=== PATIENT | female | born 1975 | race Caucasian/White ===

== ENCOUNTER 2021-06-14 16:06 | Outpatient (CLI) | payer BC, SELFPAY ==
--- NOTE | 2021-06-14 | ECG_ITS ---
Measurements Intervals [place] Rate: 55 P: 37 NE: 152 QRS: 2 QRSD: 108 T: 3 QT: 435 QTc: 417 Interpretive Statements SINUS BRADYCARDIA WITH SINUS ARRHYTHMIA POSSIBLE RIGHT VENTRICULAR CONDUCTION DELAY [RSR (QR) IN V1/V2] POSSIBLE LEFT VENTRICULAR HYPERTROPHY [VOLTAGE CRITERIA PLUS LAE OR QRS WIDENING] NO PREVIOUS ECG AVAILABLE FOR COMPARISON Electronically Signed On 06-15-2021 11:51:06 CDT by Uma Hutchins M.D.
== END 2021-06-14 16:07 | disposition home or self-care (01) ==
LOC: ANHLAB 16:09 → ANHCARD 16:14
PROVIDERS: Visit Provider Obstetrics & Gynecology
DX: I49.8 Other specified cardiac arrhythmias (principal); E66.9 Obesity, unspecified
CPT/HCPCS: 93005

== ENCOUNTER 2023-08-24 09:23 | Outpatient (CLI) | payer BC, SELFPAY ==
--- NOTE | ~2023-08-24 | CT_ITS ---
EXAMINATION: CT abdomen pelvis w con DATE: 08/24/2023 09:57 INDICATION: Inguinal hernia TECHNIQUE: Computed tomography (CT) of the abdomen and pelvis was performed with 100 CC Omnipaque 350 intravenous contrast. Automated exposure control and iterative reconstruction technique were employe d. Exam dose: 1409.02 mGy-cm total exam DLP. COMPARISON: None. FINDINGS: The lung bases are clear. Normal heart size. No pericardial or pleural effusion. Very small sliding hiatal hernia. 2 cm posterior right hepatic hypoattenuating mass. The liver is otherwise unremarkable. The gallbladder is present. No gallbladder wall thickening or pericholecystic fluid or fat stranding. No bile duct or pancreatic duct dilatation. No pancreatic mass lesion or calcification. Normal splenic size. Normal morphology of the adrenal glands. There are couple of small right renal cysts, the larger 6 mm. Approximately 3 mm left renal cyst. No urinary tract calculus or hydroureteronephrosis. There is an IUD within the uterus. Approximately 1.7 cm right ovarian probable cyst. The uterus, adne xal areas and urinary bladder are otherwise unremarkable. Normal caliber of the abdominal aorta. No intraperitoneal or retroperitoneal or pelvic mass lesion or adenopathy or ascites. No bowel obstruction, bowel wall thickening, pneumatosis or intraperitoneal free air is detected. Small fat-containing umbilical hernia. Small fat-containing inguinal hernias. Moderately severe degenerative disc disease at L4-5. No suspicious osteolytic or osteoblastic lesions are noted. IMPRESSION: 2 cm posterior right hepatic nonspecific hypoattenuating lesion; recommend comparison wi th any prior available CT examinations. If none are available, consider MRI liver for further evaluat ion. Several small renal cysts IUD within uterus Probable 1.7 cm right ovarian cyst Very small sliding hiatal hernia Small fat-containing umbilical and bilateral inguinal hernias Reviewed, dictated and finalized at [facility]. Reviewed, dictated and finalized at location B. IMPRESSION: 2 cm posterior right hepatic nonspecific hypoattenuating lesion; r ecommend comparison with any prior available CT examinations. If none are avail able, consider MRI liver for further evaluation. Several small renal cysts IUD within uterus Probable 1.7 cm right ovarian cyst Very small sliding hiatal hernia Small fat-containing umbilical and bilateral inguinal hernias
== END 2023-08-24 09:24 | disposition home or self-care (01) ==
DX: N28.1 Cyst of kidney, acquired (principal); Z97.5 Presence of (intrauterine) contraceptive device; K44.9 Diaphragmatic hernia without obstruction or gangrene; K40.20 Bilateral inguinal hernia, without obstruction or gangrene, not specified as recurrent; K42.9 Umbilical hernia without obstruction or gangrene
CPT/HCPCS: 74177; Q9967

== ENCOUNTER 2023-09-18 10:46 | Outpatient (CLI) | payer BC, SELFPAY ==
--- NOTE | ~2023-09-18 | MR_ITS ---
EXAMINATION: MR abdomen wo/w con DATE: 09/18/2023 11:54 INDICATION: Liver mass. TECHNIQUE: Magnetic resonance imaging (MRI) of the abdomen was performed without and with 19 mL Multi Mary Alice intravenous contrast. COMPARISON: CT abdomen and pelvis 08/24/2023 FINDINGS: There is an 18 mm cystic mass in right hepatic lobe with irregular peripheral nodules of enhancement. There are gallstones in the gallbladder, which is normal in size. The spleen, pancreas, and adrenal glands are normal. There are cysts in the kidneys measuring up to 5 mm on the right. There are no dil ated loops of bowel. There are no pathologically enlarged lymph nodes. There is no free intraperitone al fluid. IMPRESSION: 1. 18 mm cystic mass in right hepatic lobe, which may be a benign cyst, abscess, or less likely a nec rotic neoplasm. Consider ultrasound-guided core needle biopsy. Reviewed, dictated and finalized at location E. IMPRESSION: 1. 18 mm cystic mass in right hepatic lobe, which may be a benign cyst, abscess , or less likely a necrotic neoplasm. Consider ultrasound-guided core needle bi opsy.
== END 2023-09-18 10:47 ==
DX: K76.9 Liver disease, unspecified (principal)
CPT/HCPCS: 74183; A9577

== ENCOUNTER 2024-02-10 08:31 | Outpatient (CLI) | payer BC, SELFPAY ==
[2024-02-10 09:01] LABS: Alanine Aminotransferase 11 U/L (6-35); Albumin Level 4.3 g/dL (3.5-5.1); Alkaline Phosphatase 54 U/L (38-126); Amylase 60 U/L (30-110); Aspartate Amino Transferase 15 U/L (14-36); Bilirubin,Total 0.6 mg/dL (0.2-1.3); Lipase 100 U/L (23-300)
== END 2024-02-10 08:32 | disposition home or self-care (01) ==
PROVIDERS: Referring Provider Anesthesiology; Visit Provider Surgery
DX: K82.9 Disease of gallbladder, unspecified (principal); K40.90 Unilateral inguinal hernia, without obstruction or gangrene, not specified as recurrent
CPT/HCPCS: 36415; 80076; 82150; 83690; 86850; 86900; 86901

== ENCOUNTER 2024-02-14 01:03 | Day surgery (SDC) | payer BC, SELFPAY ==
[2024-02-06 12:57] VITALS: BMI 36.1
--- NOTE | 2024-02-06 12:58 | PC.NURSE ---
Report to the Outpatient Waiting Room, entrance under the green pavilion located off [facility], at time _0600_ on date _[id number]_. Planned Procedure Time: _0730_.? Time changes happen often and if your time is changed the preop area will call you the afternoon before. - You and your visitor will be asked to self-screen and do not enter if you have any COVID symptoms. Please call surgeon if you need to reschedule. - A mask is optional within the hospital at this time. Patients may have clear liquids (water, carbonated beverages, clear teas, apple juice) until 3 hours prior to surgery with a maximum of 20 ounces. - No food from midnight until time of surgery and no smoking Take only the following medications with a SIP of water on the morning of surgery: __None__ DO NOT STOP ANY OF YOUR OTHER PRESCRIPTION MEDICATIONS PRIOR TO SURGERY EXCEPT THE FOLLOWING Medications to discontinue per physician __None____ Please no make-up, nail yi, hairspray, perfume, deodorant, or body powder the day of surgery.? No jewelry (including any body piercings) or valuables the day of surgery, leave them at home.? Please take a shower or bath the night before, or the morning of, surgery with an antibacterial soap.? Wear comfortable, loose fitting clothing.? - Jewelry must be removed prior to entering the operating room.? Rings and piercings that are not removed may be cut off. - The hospital will not accept responsibility for valuables.? - Please leave all valuables, including medications, at home the day of surgery. If you are going home after surgery, a licensed reach lift truck driver must drive you home.? - NO public transportation without another adult if you receive anesthesia. - We recommend that an adult stay with you for 24 hours following discharge. - We also recommend that you do not drive, make important decision, drink alcoholic beverages, or take any drugs that were not prescribed by your health care provider for at least 24 hours after your discharge time. Follow any additional instructions given to you from your surgeon. Telephone instructions given to __Jacinda__and asked if any additional questions and then verbalized understanding. Patient advised to call surgeon office or pre surgery nurse liaison [phone] if any additional questions.
[2024-02-14] VITALS (12 sets, daily range): BP systolic 96–127; BP diastolic 64–87; PULSE 52–80; RESP 12–20; TEMP 36.2; O2SAT 96–100
[2024-02-14] MEDS: ACETAMINOPHEN 500 MG TABLET 1000 MG PO (06:36)
[2024-02-14] MEDS: SCOPOLAMINE 1 MG PATCH 1 PATCH TRANSDERM (06:36)
[2024-02-14] MEDS: LACTATED RINGERS 1,000 ML 30 ML IV CONT ×3 (07:00→10:01)
[2024-02-14] MEDS: INDOCYANINE GREEN 25 MG VIAL WITH DILUENT 3.75 MG IV PUSH (07:02)
[2024-02-14] MEDS: KETOROLAC 15 MG/ML VIAL (*BKC) IV PUSH (07:03)
--- NOTE | 2024-02-14 07:08 | PM.IMHP ---
H&P: HPI History of Present Illness Date/Time: 02/14/24 07:08 Chief Complaint: Cholelithiasis, left inguinal hernia Narrative: 48 yo woman presents for cholecystectomy and left inguinal hernia repair. She was seen previously for the hernia and imaging had shown gallstones as well. At that time she was not having gallbladder symptoms, but recently she began developing RUQ pain after eating. She reports no changes with the hernia since last being seen. Review of Systems Review of Systems: All systems reviewed & are unremarkable except as noted in HPI and below Constitutional: Constitutional: Denies chills, Denies fever(s), Denies headache(s) and Denies weight loss Eyes: Eyes: Denies change in vision ENT: Denies dizziness, Denies headache(s), Denies neck mass and Denies throat swelling Cardiovascular: Cardiovascular: Denies chest pain, Denies lightheadedness and Denies dyspnea Respiratory: Respiratory: Denies cough, Denies dyspnea and Denies wheezing Gastrointestinal: Gastrointestinal: Denies abdominal pain, Denies change in bowel habits, Denies nausea and Denies vomiting Genitourinary: Genitourinary: Denies hematuria and Denies dysuria Musculoskeletal: Musculoskeletal: Reports as per HPI Integumentary/Breasts: Skin/Breast: Reports as per HPI Neurologic: Denies dizziness and Denies headache(s) Allergic/Immunologic: Allergic/Immunologic: Denies throat swelling and Denies wheezing FOR[facility]LY [facility] Past Medical History Medical History (Updated 02/14/24 @ 07:10 by Qasim Spear DO) Allergies Anxiety GERD (gastroesophageal reflux disease) Surgical History Surgical History (Updated 09/25/23 @ 14:00 by Lexy Pastor CMA) History of tonsillectomy Family History Family History (Updated 09/25/23 @ 14:01 by Lexy Pastor CMA) Other Breast cancer Heart disease Lung cancer Social History Social History (Updated 09/25/23 @ 14:02 by Lexy Pastor CMA) Smoking status: Never smoker Alcohol intake: current Other substance usage details: cbc with low dose thc to sleep occasionally Do You Feel Safe in your Home?: Yes Lack of Transportation: No Lack of Food: Never True Current Housing: I Have Housing Concerned About Future Housing: No Difficulty Paying Gas/Electric Bills: No Difficulty Paying for Meds: No Currently Unemployed: No Education: High School Diploma/GED Difficulty w/ Childcare or Family Care: No Living arrangements: with family Occupation/Education: occupation Additional occupation/education comments: [employer] Spiritual care concerns: No Meds Home Medications and Allergies Home Medications Medication Instructions Recorded Confirmed Type alprazolam 0.25 mg tablet (Xanax) 0.25 mg PO QHS PRN Insomnia 09/25/23 02/06/24 History fluticasone propionate 50 1 spray intranasal DAILY 09/25/23 02/06/24 History mcg/actuation nasal spray,suspension (Allergy Relief (fluticasone)) levocetirizine 5 mg tablet (Xyzal) 5 mg PO DAILY 09/25/23 02/06/24 History levonorgestrel 21 mcg/24 hr (up to 1 device intrauterine ONCE 09/25/23 02/06/24 History 8 years) 52 mg intrauterine device (Mirena) omeprazole 20 mg capsule,delayed 20 mg PO DAILY PRN Acid Reflux 09/25/23 02/06/24 History release phentermine 15 mg capsule 15 mg PO DAILY 09/25/23 02/06/24 History topiramate 25 mg capsule,extended 25 mg PO DAILY 09/25/23 02/06/24 History release 24 hr valacyclovir 1 gram tablet 1,000 mg PO DAILY PRN Cold Sores 09/25/23 02/06/24 History Allergies Allergy/AdvReac Type Severity Reaction Status Date / Time amoxicillin Allergy Intermediate Rash Verified 02/14/24 06:20 Exam Const: General: no acute distress and alert Orientation/consciousness: patient oriented x3 HENMT: Head: normocephalic and atraumatic Ears: hearing grossly normal bilaterally Face/Nose/Sinus: Normal nares present Mouth: Yes Normal oral and palatal mucosa present Eyes: Periorbital: periorbital findings normal Sclera: sclerae normal EOM: EOMs intact bilaterally Neck: Neck: normal visual inspection, no lymphadenopathy and trachea midline Chest: Chest palpation & inspection: normal inspection of the chest Resp: Effort & Inspection: normal respiratory effort Auscultation: clear to auscultation bilaterally Cardio: Jugular venous distension: no JVD Rate: regular rate Rhythm: regular rhythm Heart sounds: S1 normal heart sound present and S2 normal heart sound present Peripheral pulses: Peripheral pulses 2+ throughout GI: Inspection: normal to inspection GI Palp: Yes Soft to palpation, No Tenderness to palpation present (GI), No Guarding due to palpation present (GI) and No Rebound tenderness present Percussion: Yes normal to percussion Auscultation: normal bowel sounds Other: left inguinal hernia : General: Yes no CVA tenderness Back/Spine/Pelvis: Back: no CVA tenderness Neuro: General: patient oriented x3, no focal motor deficits and CN's II-XI intact bilaterally Cognition (Neuro): normal cognition Speech: normal speech Motor exam (neuro): 5/5 motor strength present throughout Extrem: General: capillary refill normal and no clubbing, cyanosis or edema Assessment and Plan Assessment and plan (1) Left inguinal hernia: Code(s): K40.90 - Unilateral inguinal hernia, without obstruction or gangrene, not specified as recurrent Status: Acute Assessment and Plan: I have recommended laparoscopic left inguinal hernia repair with mesh, da guzman assisted and laparoscopic cholecystectomy, da guzman assisted. I have discussed the procedure, risks, benefits, and alternatives with the patient. All questions answered. No changes since last seen in office. (2) Symptomatic cholelithiasis: Code(s): K80.20 - Calculus of gallbladder without cholecystitis without obstruction Status: Acute
[2024-02-14 07:10] LABS: BEDSIDEPREGUCG Negative (Negative)
--- NOTE | 2024-02-14 07:10 | WPDANESEPPF ---
Anes - Initial Pre Proc Eval Procedure: Operation Date: 02/14/24 07:30 Proposed Procedures p Laparoscopic Cholecystectomy, Marzena Deleon - Qasim Spear DO s Laparoscopic Left Inguinal Hernia Repair with Mesh, Marzena Assisted - Qasim Spear DO Date/Time: 02/14/24 07:10 Surgeon: Qasim Spear DO Pre Op Diagnosis: Symptomatic Cholelithasis, Lt Ing Hernia Patient Data Age: 48 Gender: F Height: 1.57 m Weight: 88 kg Last Vital Signs Temp 97.2 F L 02/14/24 07:06 Pulse 75 02/14/24 07:06 Resp 16 02/14/24 07:06 BP 123/72 02/14/24 07:06 Pulse Ox 100 02/14/24 07:06 O2 Del Method Room Air 02/14/24 07:06 Allergies Allergy/AdvReac Type Severity Reaction Status Date / Time amoxicillin Allergy Intermediate Rash Verified 02/14/24 06:20 Home Medications Medication Instructions Recorded Confirmed Type alprazolam 0.25 mg tablet (Xanax) 0.25 mg PO QHS PRN Insomnia 09/25/23 02/06/24 History fluticasone propionate 50 1 spray intranasal DAILY 09/25/23 02/06/24 History mcg/actuation nasal spray,suspension (Allergy Relief (fluticasone)) levocetirizine 5 mg tablet (Xyzal) 5 mg PO DAILY 09/25/23 02/06/24 History levonorgestrel 21 mcg/24 hr (up to 1 device intrauterine ONCE 09/25/23 02/06/24 History 8 years) 52 mg intrauterine device (Mirena) omeprazole 20 mg capsule,delayed 20 mg PO DAILY PRN Acid Reflux 09/25/23 02/06/24 History release phentermine 15 mg capsule 15 mg PO DAILY 09/25/23 02/06/24 History topiramate 25 mg capsule,extended 25 mg PO DAILY 09/25/23 02/06/24 History release 24 hr valacyclovir 1 gram tablet 1,000 mg PO DAILY PRN Cold Sores 09/25/23 02/06/24 History Laboratory Tests 02/14/24 07:06 POC Urine HCG, Qual Pending Patient hx anesthesia problems: none Family hx anesthesia problems: none Results Review: All pre-operative results and documents have been reviewed as part of the pre-operative evaluation. [facility] Past Medical History Medical History Allergies Anxiety GERD (gastroesophageal reflux disease) Surgical History Surgical History History of tonsillectomy Family History Family History Other Breast cancer Heart disease Lung cancer Social History Social History Smoking status: Never smoker Alcohol intake: current Other substance usage details: cbc with low dose thc to sleep occasionally Do You Feel Safe in your Home?: Yes Lack of Transportation: No Lack of Food: Never True Current Housing: I Have Housing Concerned About Future Housing: No Difficulty Paying Gas/Electric Bills: No Difficulty Paying for Meds: No Currently Unemployed: No Education: High School Diploma/GED Difficulty w/ Childcare or Family Care: No Living arrangements: with family Occupation/Education: occupation Additional occupation/education comments: Manager Document Spiritual care concerns: No Anes - Eval Final PreProcedure Day of Procedure 02/14/24 07:10 Patient weight: obese Heart: regular rate and rhythm Lungs: clear to auscultation Airway: Mallampati scale class II Neurological: alert and oriented Last oral intake: >/= 8 hours ASA classification: II Emergent: no Anesthetic plan: proceed Anesthesia type and monitoring: general ETT and standard monitoring Results Review: All pre-operative results and documents have been reviewed as part of the pre-operative evaluation. BMI 35, anxiety meds. Pt reports that she walks 3 miles 3 x weekly, no cp or sob. R great toe w swelling/bruising due to dropping heavy cup on it yesterday. Informed Consent: The patient's anesthetic plan and its attendant risks and benefits were discussed with the patient/family/POA. Questions were solicited and answers provided to the satisfaction of the patient/family/POA.
--- NOTE | 2024-02-14 07:11 | WPDHPUPDATE1 ---
History and Physical Update Update Date/Time: 02/14/24 07:11 History and Physical has been reviewed, including an updated exam of the patient. There are NO changes in the patient's condition. Risks, benefits, and alternatives have been discussed and questions answered. Patient agrees to proceed with procedure.
[2024-02-14] MEDS: ceFAZolin 2 GM/D5W 50 ML 2 GM/50 ML BAG IVPB (07:30)
[2024-02-14] MEDS: BUPIVACAINE/EPINEPHRINE 0.5% 50 ML VIAL 30 ML INFILTRATE (08:02)
--- NOTE | 2024-02-14 09:03 | P.OP_ITS ---
Procedure Note - Detailed Date of Procedure 02/14/24 Pre-op Diagnosis Symptomatic Cholelithiasis, Left Inguinal Hernia Post-op Diagnosis Same (Indirect left inguinal hernia) Procedure Performed 1. Laparoscopic cholecystectomy with cholangiography, da Shawn assisted 2. Interpretation of cholangiography 3. Laparoscopic left inguinal hernia repair with mesh, da Shawn assisted Surgeon Qasim Spear, DO Anesthesia General and Local (0.5% bupivacaine) Indications This is a 48-year-old woman who presented with intermittent left groin pain and right upper quadrant pain for the past 6 months. Patient had workup which included a CT and MRI. The CT showed evidence of possible bilateral inguinal hernias and a small umbilical hernia. She was only complaining pain on left groin region and on exam could not identify a hernia in the right groin or umbilical region. She did have a small reducible left inguinal hernia on exam. She then was also complaining of some right upper quadrant pain intermittently especially if she were to eat heavier foods. Her MRI did show evidence of cholelithiasis. I discussed treatment options patient and decision was made to proceed with robotic assisted laparoscopic cholecystectomy and left inguinal hernia repair with mesh. Findings Upon inspecting the abdomen laparoscopically, the patient was found to have an indirect left inguinal hernia but no evidence of right inguinal hernia. I did not identify any evidence of an umbilical hernia as well. The left inguinal hernia was repaired robotically with a large left 3DMax mid mesh. After completing this portion of the procedure I then moved my attention to the gallb ladder. The patient's gallbladder was slightly dilated and the liver appeared to have steatosis and the left lobe of the liver was somewhat enlarged and overlapping onto the right side of the abdomen. Indocyanine green had been given intravenously preoperatively. This then allowed me to identify the biliary anatomy including the neck of the gallbladder, cystic duct, and common bile duct. With visualization with the near infrared fluorescence imaging, was able to safely identify the critical anatomy and view the critical view of safety to prevent any potential bile duct injuries. The gallbladder was removed and sent to the lab for pathology. Description of Procedure Procedure as well as risks, benefits, and alternatives were discussed with the patient. Written consent was obtained and placed in chart prior to procedure. 1.5 mL of indocyanine green was given intravenously in preop. Patient was brought back to surgical suite. She was placed supine on operating table. Time-out was done to confirm patient and procedure. She was then intubated by the anesthesia department. Her abdomen was then prepped and draped in sterile fashion using chlorhexidine prep. 0.5% bupivacaine was infiltrated locally at the site of each port placement. An 8 mm incision was made in the left upper quadrant and a 5 mm Optiview trocar was then advanced through the abdominal layers under direct visualization. Once inside the abdominal cavity, carbon dioxide insufflation was used to create a pneumoperitoneum. The camera was inserted and the abdomen was inspected. No mediated abnormalities were noted. Two 8 mm incisions were made in the right lateral abdomen and 2 8 mm trocars were inserted under direct visualization. An 8 mm incision was made in the supraumbilical region and an 8 mm trocar was inserted under direct visualization. The 5 mm Optiview trocar was then removed and another 8 mm trocar was inserted in its place. Patient was then placed in slight Trendelenburg position. The robotic arms were then brought up to the patient's bedside and secured to each port. The camera and instruments were inserted. I then moved over to the robotic consult to take control of the camera and instruments. Inspected the lower abdomen and identified an indirect left inguinal hernia. There was no evidence of a right inguinal hernia. A began scoring the peritoneum about 6 cm cephalad to the hernia the left groin region using scissors with electrocautery. The preperitoneal plane was developed extending caudad towards the hernia defect. The hernia sac was reduced and dissected far enough posteriorly to allow for mesh placement. I also dissected far enough medially to identify the pubic arch in Basil's ligament and laterall y wide enough for the mesh placement. The hernia sac was dissected off of the round ligament, but I did not need to transect the round ligament. Once a wide enough preperitoneal pocket was created, I then placed a large left 3DMax mid mesh within the preperitoneal pocket and carefully laid this out overlying the entire left myopectineal orifice. The mesh was then secured in place at Basil's ligament using a 3-0 Vicryl simple interrupted suture. The mesh was then also secured at the superior medial and lateral edge using 3-0 Vicryl simple interrupted sutures. The peritoneum was then closed over the mesh using a 3 0 V lock running absorbable suture. The repair was inspected and appeared secure. The robotic instruments were then removed and the robotic arms were disengaged from the ports. The robotic arms were then repositioned and the patient was placed in 12? reverse Trendelenburg position and 6? to the left. The robotic arms were then removed the secured to the ports and the camera and instruments were then reinserted. The gallbladder was grasped at the fundus and retracted cephalad. The infundibulum of the gallbladder was then grasped and retracted laterally. Hook electrocautery was then used to carefully dissect around the neck of the gallbladder. The cystic duct was identified and a window was created around it using hook electrocautery. The cystic artery was also identified and a window was created behind it using hook electrocautery. Critical view of safety was identified visualizing the cystic duct running directly into the neck of the gallbladder and the cystic artery running directly into the wall the gallbladder. The camera view was switched to firefly mode and the indocyanine green within the gallbladder and cystic duct was clearly visualized. No other structures were noted running into this region and there did not appear to be any obstruction of the cystic duct impeding flow of bile into the gallbladder. The camera mode was switched back to regular mode. Hemo lock clips were placed on both the cystic duct and cystic artery. Two clips were placed proximally and 1 distally. Hook electrocautery was then used to transect in between the clips. Once safely away from the luis fernando hepatus, hook electrocautery was used to dissect the gallbladder off of the liver bed. Once the gallbladder was completely dissected free it was then placed in an Endo- Catch bag and removed through the left upper quadrant port site. The liver bed was carefully inspected. Hemostasis appeared adequate under clips appeared secure. No other intra-abdominal abnormalities were noted. A Juni cone was then used to approximate the fascia of the left upper quadrant port using an 0 Vicryl suture. The remaining instruments and camera were removed and the robotic arms were disengaged from the ports. Pneumoperitoneum was released and the ports were removed. The skin of each of the incisions was then approximated using 4-0 Monocryl subcuticular suture. Exofin glue was then applied on top. Patient was then awakened from anesthesia, extubated, and transferred to recovery. Implants Large left 3DMax Mid Mesh Estimated Blood Loss 5 Pathology Yes (Gallbladder) Complications No immediate complications Condition Stable Disposition Same day [facility] Billing Surgery - Charge Forward: Surgery Billing
[2024-02-14] MEDS: ONDANSETRON INJ 4 MG/2 ML VIAL IV PUSH (09:30)
[2024-02-14] MEDS: diphenhydrAMINE HCl INJ 50 MG/ML VIAL 12.5 MG IV PUSH ×2 (10:02→10:17)
--- NOTE | 2024-02-14 11:02 | SUR.PHASEII ---
1100 - c/o nausea. up in chair now, family member in room. sitting quietly with eyes closed. has pain level of 4, however states that isn't bothering her right now.
== END 2024-02-14 12:32 | disposition home or self-care (01) ==
PROVIDERS: Visit Provider Surgery
PROC: 0FT44ZZ Resection of Gallbladder, Percutaneous Endoscopic Approach (ICD-10-PCS; CPT 47562; principal; 2024-02-14 07:30)
PROC: 8E0Y4CZ Robotic Assisted Procedure of Lower Extremity, Percutaneous Endoscopic Approach (ICD-10-PCS; CPT 49650; 2024-02-14 07:30)
DX: K81.1 Chronic cholecystitis (principal); K40.90 Unilateral inguinal hernia, without obstruction or gangrene, not specified as recurrent; K21.9 Gastro-esophageal reflux disease without esophagitis; F41.9 Anxiety disorder, unspecified; E66.9 Obesity, unspecified; Z68.35 Body mass index [BMI] 35.0-35.9, adult
CPT/HCPCS: 47563; 74300; 49650; S2900; 88304; A9270; C1781; J0690; J1100; J1171; J1200; J1885; J2003; J2250; J2371; J2405; J2704; J3010; J7030; J7120

== ENCOUNTER 2024-04-01 17:24 | Emergency (ER) | payer BC, SELFPAY ==
--- NOTE | 2024-04-01 17:30 | ED_ITS ---
HPI - Extremity Problem General Chief complaint: Extremity Injury, Lower Stated complaint: toe infection Time Seen by Provider: 04/01/24 17:30 Source: patient Mode of arrival: ambulatory Limitations: no limitations History of Present Illness HPI Narrative: Tal is a 48-year-old female patient presenting to the clinic today with complaints of a possible toe infection to the right great toe. She reports 4 weeks ago she dropped a 40 oz full bottle on the top of her right great toe. She reports that there is no pain in the toe however over the last few days it has become red and swollen. Thinks that there may be pus under the toenail as it is a white/greenish color. Did a [facility] health appointment today and they suspected that she had a infection under the toenail and request that she come in to have it drained and be started on antibiotics. Related Data Home Medications ?Medication ?Instructions ?Recorded ?Confirmed ?Last Taken ?Type fluticasone propionate 50 1 spray intranasal DAILY 09/25/23 02/27/24 Unknown History mcg/actuation nasal spray,suspension (Allergy Relief (fluticasone)) levocetirizine 5 mg tablet (Xyzal) 5 mg PO DAILY 09/25/23 02/27/24 Unknown History levonorgestrel (Mirena) 1 device intrauterine ONCE 09/25/23 02/27/24 Unknown History omeprazole 20 mg capsule,delayed 20 mg PO DAILY PRN Acid Reflux 09/25/23 02/27/24 Unknown History release phentermine 15 mg capsule 15 mg PO DAILY 09/25/23 02/27/24 Unknown History topiramate 25 mg capsule,extended 25 mg PO DAILY 09/25/23 02/27/24 Unknown History release 24 hr valacyclovir 1 gram tablet 1,000 mg PO DAILY PRN Cold Sores 09/25/23 02/27/24 Unknown History alprazolam 0.25 mg tablet (Xanax) 0.25 mg PO QHS PRN Insomnia 02/26/24 02/27/24 Unknown History Allergies Allergy/AdvReac Type Severity Reaction Status Date / Time amoxicillin Allergy Intermediate Rash Verified 04/01/24 17:42 Review of Systems Review of Systems: Pertinent positives per HPI. Patient denies any fever, chills, rash, headache, visual changes, dizziness, cough, runny nose, sore throat, shortness of breath, chest pain, palpitations, nausea, vomiting, diarrhea, constipation, abdominal pain, or any urinary issues. [facility] Past Medical History Medical History (Updated 04/01/24 @ 17:48 by Bhavin Rob APRN) GERD (gastroesophageal reflux disease) Anxiety Allergies Surgical History Surgical History Hx laparoscopic cholecystectomy 02/14/24 1. Laparoscopic cholecystectomy with cholangiography, da Shawn assisted 2. Interpretation of cholangiography 3. Laparoscopic left inguinal hernia repair with mesh, da Shawn assisted Dr. Snell History of tonsillectomy Family History Family History Other Breast cancer Heart disease Lung cancer Social History Social History Smoking status: Never smoker Alcohol intake: current Other substance usage details: cbc with low dose thc to sleep occasionally Do You Feel Safe in your Home?: Yes Lack of Transportation: No Lack of Food: Never True Current Housing: I Have Housing Concerned About Future Housing: No Difficulty Paying Gas/Electric Bills: No Difficulty Paying for Meds: No Currently Unemployed: No Education: High School Diploma/GED Difficulty w/ Childcare or Family Care: No Living arrangements: with family Occupation/Education: occupation Additional occupation/education comments: [employer] Spiritual care concerns: No Comments At the time of my signature, I reviewed and agree with the nursing past medical, surgical, social, and family history. There is no relevant family history pertinent to the patient complaint. Exam Narrative: General: Well-developed, obese, in no apparent distress Head: Normocephalic, atraumatic. Cardio: Regular rate and rhythm, s1 and s2 normal, no murmur appreciated. Resp: Clear to auscultation bilaterally, no rhonchi, rales, wheezing or rubs. Musculoskeletal: No deformity, non-tender to palpation, redness and swelling noted to the mid and distal right great toe, possible green/white pus under the proximal toenail, grossly normal range of motion, muscle strength strong and equal, peripheral pulse strong, no edema, no cyanosis, normal gait and station Course Course Emergency Course: Portions of this record may have been created with voice recognition software. Level of Care: Express Care Visit Vital Signs Vital signs: Vital Signs Temperature 36.2 C L 04/01/24 17:39 Pulse Rate 78 04/01/24 17:39 Respiratory Rate 18 04/01/24 17:39 Blood Pressure 121/77 04/01/24 17:39 Pulse Oximetry 100 04/01/24 17:39 Oxygen Delivery Room Air 04/01/24 17:39 Temperature 36.2 C L 04/01/24 17:39 Pulse Rate 78 04/01/24 17:39 Respiratory Rate 18 04/01/24 17:39 Blood Pressure 121/77 04/01/24 17:39 Pulse Oximetry 100 04/01/24 17:39 Oxygen Delivery Room Air 04/01/24 17:39 Vital signs reviewed MDM - Extremity (Nontraumatic) MDM Narrative Medical decision making narrative: At the time of visit patient is resting comfortably on the exam table. Patient appears to be nontoxic. Procedures: Subungual hematoma procedure was performed using cautery. No drainage was noted Plan: I suspect patient has a cellulitis of the right great toe. No pain to palpation and injury happened 4 weeks ago so I do not feels though an x-ray is necessary at this time. Cautery was used to perform subungual hematoma to relieve purulent discharge however there was no discharge-green whitish jamal earance appears to be old blood/bruising. Toe is red and swollen with mild erythema. Prescription for clindamycin was sent to the pharmacy. Supportive measures were discussed with the patient and they voiced understanding discharge instructions and agrees to treatment plan. Return precautions reviewed Differential Diagnosis Differential diagnosis: Likely herpes zoster, gout, cellulitis and other (Infected subungual hematoma) Discharge Plan Discharge Clinical Impression: Cellulitis of great toe Qualifiers: Laterality: right Qualified Code(s): L03.031 - Cellulitis of right toe Patient Disposition: Home, Self-Care Condition: Stable Instructions: Antibiotic Form, Cellulitis (ED) Additional Instructions: Cautery used to perform subungual hematoma procedure-no drainage noted Keep clean and dry May do Epson salt soaks 3-4 times daily in warm water Wash daily with soap and water Take clindamycin as prescribed Follow-up with your primary care doctor in 3-5 days if symptoms persist or sooner if they worsen Patient Language: Turkish Prescriptions: New clindamycin HCl 300 mg capsule 300 mg PO Q8H 10 Days Qty: 30 0RF No Action Mirena 21 mcg/24 hr (8 yrs) 52 mg intrauterine device 1 device intrauterine ONCE Rx Instructions: as a single dose omeprazole 20 mg capsule,delayed release(DR/EC) 20 mg PO DAILY PRN (Reason: Acid Reflux) levocetirizine [Xyzal] 5 mg tablet 5 mg PO DAILY topiramate 25 mg capsule,extended release 24hr 25 mg PO DAILY phentermine 15 mg capsule 15 mg PO DAILY Rx Instructions: must administer 2 hours after breakfast fluticasone propionate [Allergy Relief (fluticasone)] 50 mcg/actuation spray,suspension 1 spray intranasal DAILY Rx Instructions: administer into each nostril valacyclovir 1 gram tablet 1,000 mg PO DAILY PRN (Reason: Cold Sores) alprazolam [Xanax] 0.25 mg tablet 0.25 mg PO QHS PRN (Reason: Insomnia) ondansetron HCl 4 mg tablet 4 mg PO Q6H PRN (Reason: nausea and vomiting) Qty: 10 0RF Follow-up/Referrals: Leah,Monica Rojas, [employer] [Primary Care Provider] - Time of Disposition: 17:49 Quality NIHSS Nursing Documentation ED NIHSS nursing documentation: reviewed/agree
[2024-04-01 17:39] VITALS: BP 121/77; PULSE 78; RESP 18; TEMP 36.2; O2SAT 100
== END 2024-04-01 17:53 | disposition home or self-care (01) ==
PROVIDERS: Emergency Provider Nurse Practitioner Family
DX: L03.031 Cellulitis of right toe (principal)
CPT/HCPCS: 11740; 99213; G0463